=== PATIENT | female | born 1995 | race Caucasian/White ===

== ENCOUNTER 2023-07-27 05:33 | Inpatient (IN) | payer OTHER ==
[~2023-07-27] VITALS: Ht 160 cm; Wt 62.5 kg
[~2023-07-27 05:33] MED LIST: Cyclobenzaprine5 MG PO; IBUP800 PO; MORGIDOX100 MG PO; Verotin-Gr Cap1 EACH PO; Zofran Odt4 MG PO
[2023-07-27 05:42] VITALS: BP 113/62
[2023-07-27 06:30] LABS: BASOPHILS ABSOLUTE AUTO 0.03 K/mm3 (0.00-0.23); BASOPHILS PERCENT AUTO 0 % (0-2); EOSINOPHILS ABSOLUTE AUTO 0.25 K/mm3 (0.00-0.68); EOSINOPHILS PERCENT AUTO 4 % (0-6); Hematocrit 25.6 % (33.0-51.0); Hemoglobin 8.7 g/dL (11.5-16.0); IMMATURE GRAN ABSOLUTE AUTO 0.04 K/mm3 (0.00-0.10); IMMATURE GRAN PERCENT AUTO 1 % (0-1); LYMPHOCYTES ABSOLUTE AUTO 1.96 K/mm3 (0.84-5.20); LYMPHOCYTES PERCENT AUTO 27 % (21-46); MONOCYTES ABSOLUTE AUTO 0.67 K/mm3 (0.16-1.47); MONOCYTES PERCENT AUTO 9 % (4-13); Mean Corpuscular HGB 30.4 pg (26.0-34.0); Mean Corpuscular Volume 90 fL (80-100); Mean Platelet Volume 9.9 fL (9.1-12.4); NEUTROPHILS ABSOLUTE AUTO 4.27 K/mm3 (1.96-9.15); NEUTROPHILS PERCENT AUTO 59 % (41-73); Platelet Count 315 K/mm3 (150-400); RDW Coefficient Variation 12.1 % (11.7-14.2); RDW Standard Deviation 39.4 fL (35.1-46.3); Red Blood Cell Count 2.86 M/mm3 (3.80-5.20); White Blood Cell Count 7.22 K/mm3 (4.00-11.30)
[2023-07-27 07:16] LABS: U Amphetamine Screen Not Detected; U Barbituate Screen Not Detected; U Benzodiazapine Screen Not Detected; U Buprenorphine Screen Not Detected; U Cannabinoids Screen Not Detected; U Cocaine Screen Not Detected; U Methadone Screen Not Detected; U Methamphetamine Screen DETECTED; U Opiates Screen Not Detected; U Oxycodone Screen Not Detected; U Phencyclidine Screen Not Detected; U Propoxyphene Screen Not Detected
[2023-07-27 07:40] VITALS: BP 107/68
--- NOTE | 2023-07-27 09:26 | NUR ---
patient called rn and is out of control writhing in pain and states "I need more medicine." she declines feeling ucs or labor pain however states her whole body just hurts. I called Dr carbajal and told him this information and he declines hospitalist consult at this time. He is going to make a phone call for consultation with another provider to manage patients detox.
--- NOTE | 2023-07-27 09:29 | NUR ---
tamper tape on iv.
--- NOTE | 2023-07-27 09:35 | NUR ---
patient called and states she wants her mom to come get her. she is moaning and restless. i called child protective services social worker and they are in a meeting now however they will call me back in 15 minutes or so for consult. wonderly notified of patient status and awaiting child protective services social worker. no new orders at this time.
[2023-07-27 09:37] LABS: Percent Saturation 4.9 % (15.0-50.0)
--- NOTE | 2023-07-27 10:00 | NUR ---
Anupama from social media sr strategy manager came and met with Telma and reviewed options with her for rehabilitaion services. Per Telma she would be open to going to [facility]. Per Anupama they were unable to get ahold of [facility] to accept Telma as a patient. Telma states she is leaving against medical advice and her papa was coming to get her. Options of giving her suboxone here at the hospital were again reviewed which the patient however she declined staying and declined help here at [facility]. The risk of her leaving [facility] were reviewed including , seizures, bleeding, drug overdose and maternal with no benefit of leaving. pt signed form and walked out. encouraged patient to please come back if having any labor signs or is receptive to being patient again. Anupama states she will reach out to patient to try to get her placement in [facility] today. [facility] number and [facility] number given to Telma. Her papa came and spoke with me and asked if she was going to be ok. I stated that I could not gaurantee that her and her baby would be ok with her leaving and that Telma declined to stay here at the hospital to be taken care of and given the Suboxone that would help her detox. Her papa asked what to do and I offered suggestions of taking her to inpatient rehab or returning to [facility] until to receive the help she needed however Telma states that they were going to leave. left hopsital in private vehicle at 1005 with papa to supposedly dc home. When asked where home was she states with her mom kei and papa. Labor precautions reviewed and pt knows to come directly to [facility] and not ER next time she comes in to hospital for related visits.
--- NOTE | 2023-07-27 10:00 | NUR ---
ganesh from social organization professor here to do consult with pt. pt states she is going to leave and go home with her papa, she said there is no point in staying here. do wonderly called back and offered patient suboxone 2 mg now and to titrate every 2 hours according to withdrawal symptoms and this was reccomended by dr ocasio up in [place]. i offered this to the patient and she states that shes not interested in that and that it will make her withdrawal symptoms worse. education provided that we could titrate her up based on her symptoms and she denies suboxone now. ganesh social science research assistant having conversation with lon and lon states she wants to get clean and is open to going to [facility] and is interested in getting placement today. Ganesh currently on phone to see if she would be able to get in.
[2023-07-28 07:11] LABS: HBSAG SCREEN Negative (Negative)
[2023-07-28 10:09] LABS: HIV AB/P24 AG SCREEN Non Reactive (Non Reactive)
== END 2023-07-27 10:10 | disposition home or self-care (01) | DRG 832 ==
LOC: OBS 05:33 → BC 05:33 → OBS 05:56 → BC 05:57
PROVIDERS: ADMIT Obstetrics & Gynecology
DX: O34.211 Maternal care for low transverse scar from previous cesarean delivery (principal); F11.93 Opioid use, unspecified with withdrawal; O99.323 Drug use complicating pregnancy, third trimester; F15.93 Other stimulant use, unspecified with withdrawal; Z59.00 Homelessness unspecified; O99.013 Anemia complicating pregnancy, third trimester; D64.9 Anemia, unspecified; O32.8XX0 Maternal care for other malpresentation of fetus, not applicable or unspecified; Z3A.32 32 weeks gestation of pregnancy
CPT/HCPCS: 36415; 76816; 82728; 83540; 83550; 85025; 86317; 86592; 86762; 86850; 86900; 86901; 86923; 87340; 87389; J0290; J0690; J0702; J2270; J3010; J3475; J7120

== ENCOUNTER → 2025-03-30 | Outpatient (CLI) | payer OTHER | LOC: LAB 10:00 → LAB SHORT 10:00 | DX: O09.93 Supervision of high risk pregnancy, unspecified, third trimester (principal) | CPT/HCPCS: 87081; 87150 ==

== ENCOUNTER 2025-05-04 06:44 | Inpatient (IN) | payer OTHER ==
[2025-05-04] VITALS (48 sets, daily range): BP systolic 87–134; BP diastolic 49–81
[~2025-05-04] VITALS: Ht 160 cm; Wt 76.8 kg
[2025-05-04] MEDS ORDERED: OXYTOCIN/RINGER'S LACTATE 500 ML IV SCH ×2 (07:35→14:50)
[2025-05-04] MEDS ORDERED: FentaNYL Citrate 50 MCG/ML 2 ML Injection IV PRN (07:35)
[2025-05-04] MEDS ORDERED: OXYTOCIN/RINGER'S LACTATE 500 ML IV PRN (07:40)
[2025-05-04] MEDS ORDERED: Ondansetron HCl 2 MG / ML 2ML Vial IV PRN (07:40)
[2025-05-04] MEDS ORDERED: ePHEDrine Sulfate 50 MG/ML 1ML Injection XX PRN (07:40)
[2025-05-04] MEDS ORDERED: Carboprost Tromethamine 250 MCG/ML 1ML Amp IM PRN (07:40)
[2025-05-04] MEDS ORDERED: Oxytocin 10 Unit / ML Vial IM PRN (07:40)
[2025-05-04] MEDS ORDERED: Methylergonovine Maleate 0.2MG / ML 1ML Amp IM PRN ×2 (07:40→14:40)
[2025-05-04] MEDS ORDERED: FentaNYL 2mcg/ml-Bup 0.1% Epd 250 ML EPI PRN (07:40)
[2025-05-04] MEDS ORDERED: Tranexamic Acid 100 ML IV SCH (07:50)
[2025-05-04 08:03] LABS: BASOPHILS ABSOLUTE AUTO 0.03 K/mm3 (0.00-0.23); BASOPHILS PERCENT AUTO 0 % (0-2); EOSINOPHILS ABSOLUTE AUTO 0.05 K/mm3 (0.00-0.68); EOSINOPHILS PERCENT AUTO 1 % (0-6); Hematocrit 38.0 % (33.0-51.0); Hemoglobin 12.9 g/dL (11.5-16.0); IMMATURE GRAN ABSOLUTE AUTO 0.04 K/mm3 (0.00-0.10); IMMATURE GRAN PERCENT AUTO 1 % (0-1); LYMPHOCYTES ABSOLUTE AUTO 2.03 K/mm3 (0.84-5.20); LYMPHOCYTES PERCENT AUTO 28 % (21-46); MONOCYTES ABSOLUTE AUTO 0.51 K/mm3 (0.16-1.47); MONOCYTES PERCENT AUTO 7 % (4-13); Mean Corpuscular HGB Conc 33.9 g/dL (31.5-36.5); Mean Corpuscular Volume 89 fL (80-100); NEUTROPHILS ABSOLUTE AUTO 4.71 K/mm3 (1.96-9.15); NEUTROPHILS PERCENT AUTO 64 % (41-73); NRBC ABSOLUTE 0.00 K/mm3 (0.00-0.02); NRBC Auto 0.0 /100 WBC (0.0-0.2); Platelet Count 172 K/mm3 (150-400); RDW Coefficient Variation 15.1 % (11.7-14.2); RDW Standard Deviation 49.8 fL (35.1-46.3)
[2025-05-04] MEDS ORDERED: BUPRENORPHIN-N1 EAC1 SL (08:11)
[2025-05-04] MEDS ORDERED: PRENATAL TABLE1 EAC2 PO (08:11)
[2025-05-04 09:24] LABS: U Amphetamine Screen Not Detected; U Barbituate Screen Not Detected; U Benzodiazapine Screen Not Detected; U Buprenorphine Screen DETECTED; U Cannabinoids Screen Not Detected; U Cocaine Screen Not Detected; U Methadone Screen Not Detected; U Methamphetamine Screen Not Detected; U Opiates Screen Not Detected; U Oxycodone Screen Not Detected; U Phencyclidine Screen Not Detected
[2025-05-04] MEDS ORDERED: Witch Hazel/Glycerin PADS TOP PRN (14:40)
[2025-05-04] MEDS ORDERED: Rho(D) Immune Globulin 300 MCG / SYR IM ONE (14:45)
[2025-05-04] MEDS ORDERED: Benzocaine Topical Anesthetic Spray 60GM TOP PRN (14:45)
[2025-05-04] MEDS ORDERED: Ketorolac Tromethamine 30mg Vial IV PRN (14:45)
[2025-05-04] MEDS ORDERED: Rho(D) Immune Globulin 300 MCG / SYR IV ONE (22:35)
[2025-05-05 01:46] VITALS: BP 100/57
[2025-05-05] MEDS ORDERED: Rho(D) Immune Globulin 300 MCG / SYR IV ONE (04:30)
[2025-05-05 04:51] VITALS: BP 99/56
[2025-05-05] MEDS ORDERED: Prenatal Vit/FE Fumarate/FA 1 Tab PO SCH (09:00)
[2025-05-05 10:24] VITALS: BP 105/58
[2025-05-05] MEDS ORDERED: ACET500 PO (18:10)
[2025-05-05] MEDS ORDERED: IBUP800 PO (18:10)
--- NOTE | 2025-05-05 18:59 | NUR ---
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 Spoke with Purnima, #[id number]. and made aware that the baby will be at this hospital for minimum of 5 days per protocol
== END 2025-05-05 18:50 | disposition home or self-care (01) | DRG 806 ==
LOC: OBS 06:44 → BC 06:48 → OBS 06:54 → BC 06:55
PROVIDERS: ADMIT Advanced Practice Midwife
PROC: 10E0XZZ Delivery of Products of Conception, External Approach (ICD-10-PCS; principal; 2025-05-04)
PROC: 00HU33Z Insertion of Infusion Device into Spinal Canal, Percutaneous Approach (ICD-10-PCS; 2025-05-04)
PROC: 3E0R3BZ Introduction of Anesthetic Agent into Spinal Canal, Percutaneous Approach (ICD-10-PCS; 2025-05-04)
DX: O48.0 Post-term pregnancy (principal); F11.20 Opioid dependence, uncomplicated; Z37.0 Single live birth; O99.324 Drug use complicating childbirth; F15.20 Other stimulant dependence, uncomplicated; O99.334 Smoking (tobacco) complicating childbirth; F17.290 Nicotine dependence, other tobacco product, uncomplicated; F43.10 Post-traumatic stress disorder, unspecified; O99.344 Other mental disorders complicating childbirth; F41.8 Other specified anxiety disorders; Z79.899 Other long term (current) drug therapy; Z3A.41 41 weeks gestation of pregnancy; Z87.442 Personal history of urinary calculi
CPT/HCPCS: 36415; 51702; 85025; 85460; 86850; 86900; 86901; 86923; A9270; J1885; J2590; J2791; J7120